=== PATIENT | female | born 2005 | race Caucasian/White ===

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

== ENCOUNTER 2024-04-16 19:36 | Emergency (ER) | payer BC, SELFPAY ==
[2024-04-16] VITALS (35 sets, daily range): BP systolic 105–123; BP diastolic 61–78; PULSE 73–103; RESP 10–30; TEMP 37.3; O2SAT 94–100
--- NOTE | 2024-04-16 19:59 | W.ED.GENAD ---
Discharge Plan Disposition Patient Disposition: Home Condition: Improving Discharge Details Chief Complaint: Nk/Back Pain Clinical Impression: Vomiting Primary Care Provider: Nathalie Conner ED Provider: Kobe Shea Home Meds and New Rx's Prescriptions: No Action cholecalciferol (vitamin D3) 1,000 unit capsule 1,000 unit PO DAILY multivitamin tablet 1 tab PO DAILY (DME) [facility] Luer Lock Syr-needle 3 mL 23 x 1 syringe See Rx Instructions .Route Qty: 30 0RF Rx Instructions: As directed Discharge Instructions Instructions: Nausea and Vomiting, Adult ED Additional Instructions: Please follow-up with your primary care physician. Return to the emergency department for any worsening symptoms HPI General Date/Time Provider Initiated Documentation: 04/16/24 19:55. HPI Narrative: 19-year-old female brought in by mother for evaluation of back pain nausea vomiting after drinking heavily last night into this morning 1 AM. Related Data Home Medications ?Medication ?Instructions ?Recorded ?Confirmed cholecalciferol (vitamin D3) 25 1,000 unit PO DAILY 03/20/19 03/09/24 mcg (1,000 unit) capsule multivitamin 1 tab PO DAILY 03/20/19 03/09/24 syringe with needle 3 mL 23 x 1 #30 ea 01/17/23 03/09/24 ([facility] Luer Lock Syringe with needle) Previous Rx's ?Medication ?Instructions ?Recorded syringe with needle 3 mL 23 x 1 #30 ea 01/17/23 ([facility] Luer Lock Syringe with needle) Allergies Allergy/AdvReac Type Severity Reaction Status Date / Time No Known Allergies Allergy Verified 03/09/24 12:47 General Stated Complaint: Nk/Back Pain JAMIE: 3 Exam Narrative Exam Narrative: Alert oriented interactive Moist mucous membranes tolerating secretions normal voice Speaking full sentences no respiratory distress Abdomen soft nontender nondistended Alert oriented interactive moving all extremities Course Vital Signs Vital signs: Vital Signs Temperature 37.3 C 04/16/24 19:40 Pulse 94 H 04/16/24 19:40 Respiratory Rate 15 04/16/24 19:40 Blood Pressure 120/76 04/16/24 19:40 Pulse Oximetry 99 04/16/24 19:40 Temperature 37.3 C 04/16/24 19:40 Temperature Source Tympanic 04/16/24 19:40 Pulse 94 H 04/16/24 19:40 Respiratory Rate 15 04/16/24 19:40 Respiratory Effort Normal 04/16/24 19:47 Blood Pressure 120/76 04/16/24 19:40 Blood Pressure Position Sitting 04/16/24 19:40 Pulse Oximetry 99 04/16/24 19:40 Oxygen Delivery Method Room Air 04/16/24 19:40 Oxygen Flow Rate 0 04/16/24 19:40 Medical Decision Making 19-year-old female presents with nausea headache and back discomfort after drinking heavily last night. Hemodynamically stable afebrile nontoxic abdomen soft nontender nondistended. Moist mucous membranes. Alert oriented interactive no signs of intoxication or trauma. Nonperitoneal examination. Consider hangover versus gastritis versus esophagitis versus pancreatitis lower suspicion for dehydration or electrolyte derangement low suspicion of cholecystitis appendicitis or urinary tract infection. Will obtain basic labs lipase urine test, fluids antiemetics GI cocktail close reassessment 23: 02 patient resting notably feeling much better. No vomiting in department. Nonperitoneal. Hemodynamically stable. Respiratory rate is not 27 respiratory rate is 16. Leukocytosis likely related to persistent vomiting today, no infectious symptomatology currently such as fever respiratory complaint GI complaint or urinary complaint. Ketones in urine consistent with decreased p.o. intake today and vomiting. No evidence of DKA. Home care instructions and strict return precautions given. Patient feels comfortable going home. Quality:SDOH Health Related Social Needs: No Data to Display PFSH All Active Problems (Updated 04/16/24 @ 23:04 by Kobe Shea MD) Vomiting (Acute) Scoliosis (Acute) Acne (Acute) Tonsil stone (Acute) Pharyngitis (Acute) Depo-Provera contraceptive status (Acute) Mom is pharmacist and managing injections from home Anorexia (Acute) PTSD (post-traumatic stress disorder) (Acute) Anxiety (Chronic) Depression (Chronic) GERD (gastroesophageal reflux disease) (Chronic) Medical History Ear infection frequent ear infections and wax build up External hemorrhoids without mention of complication Surgical History Myringotomy tube status Family History Mother Depression Father Substance abuse alcohol and drugs Depression Other Cancer Diabetes Heart disease Hyperlipidemia Hypertension Social History Second Hand Exposure: Yes Smoking risk assessment performed?: No Household members: other Details: roommate Education Level: college Details: Sophomore [employer] Pets and animals: Yes (4 dogs, 2 cats) Pets and animals: cat(s) and dog(s) Current gender identity: female PAWSS Have you Been Recently Intoxicated or Drunk Within the Last 30 days?: Yes Have you Ever Experienced Previous Episodes of Alcohol Withdrawal?: No Have you ever Experienced Withdrawal Seizures?: No Have you ever Experienced Delirium Tremens(DT)s?: No Have you ever undergone Alcohol Rehabilitation Treatment (i.e, inpt ot outpatient treatment programs)?: No Have you ever Experienced Blackouts?: No Have you ever Combined Alcohol with other Downers within the last 90 days?: No Have you ever Combined Alcohol with any other Substance of Abuse during the last 90 days?: No Positive Blood Alcohol level on Presentation? [PCS.BAL]: No Evidence of Increased Autonomic Activity (i.e. HR>120, tremor, sweating, agitation, nausea)?: No Result: 1
[2024-04-16 20:03] LABS: Abs Immature Grans 0.13 10^3/uL (0.0-0.06); Absolute Lymphocyte Count 0.98 10^3/uL (1.2-3.4); Absolute Monocyte Count 0.81 10^3/uL (0.1-0.8); Basophils % 0.3 %; HCT 39.6 % (36.0-46.0); HGB 13.3 g/dL (11.2-15.7); Immature Grans % 0.6 %; Lymphocytes % 4.8 %; MCH 28.7 pg (27.0-33.0); MCHC 33.6 % (32.0-36.0); MCV 86 fL (80-95); MPV 9.5 fL (8.0-11.0); Neutrophils % 90.3 %; Platelet Count 230 10^3/uL (130-400); RBC 4.63 10^6/uL (3.93-5.22); RDW 12.8 % (11.7-14.6); RDW-SD 39.7 fL; WBC 20.36 10^3/uL (4.4-10.8)
[2024-04-16 20:04] LABS: Absolute Basophil Count 0.06 10^3/uL (0.0-0.2); Absolute Neutrophil Count 18.39 10^3/uL (1.2-6.7)
[2024-04-16] MEDS: Lidocaine 2% Viscous 15 ML CUP (20:14)
[2024-04-16] MEDS: Mylanta Suspension 30 ML CUP (20:14)
[2024-04-16] MEDS: Famotidine 20 MG/2 ML VIAL IVP (20:14)
[2024-04-16] MEDS: Ondansetron 4 MG/2 ML VIAL IVP (20:14)
[2024-04-16] MEDS: Normal Saline 1,000 ML 1000 ML IV (20:14)
[2024-04-16 20:16] LABS: Lipase 19 U/L (16-77)
[2024-04-16 20:19] LABS: ALT 61 U/L (14-59); AST 35 U/L (15-37); Albumin 4.3 g/dL (3.4-5.0); Alkaline Phosphatase 88 U/L (46-116); Anion Gap 11.4 mmol/L (3-11); BUN 13 mg/dL (7-18); Bilirubin, Total 1.14 mg/dL (0.2-1.0); CO2 26.6 mmol/L (21.0-32.0); CREATININE 0.9 mg/dL (0.55-1.02); Calcium 9.2 mg/dL (8.5-10.1); Chloride 104 mmol/L (98-107); Estimated GFR 93.86 (mL/min/1.73m2); Glucose 102 mg/dL (74-106); Potassium 3.7 mmol/L (3.5-5.1); Sodium 142 mmol/L (136-145); Total Protein 7.8 g/dL (6.4-8.2)
[2024-04-16 22:49] LABS: Bilirubin Negative (Negative); Blood Negative (Negative); Clarity Clear (Clear); Glucose Negative (Negative); Ketones >=160 mg/dL (Negative); Leukocyte Esterase Negative (Negative); Nitrite Negative (Negative); Specific Gravity 1.025 (1.005-1.025); Urobilinogen 0.2 mg/dL (Up to 0.2)
== END 2024-04-16 23:30 | disposition home or self-care (01) ==
PROVIDERS: Emergency Provider Emergency Medicine; PCP Student in an Organized Health Care Education/Training Program
DX: R11.2 Nausea with vomiting, unspecified (principal); R51.9 Headache, unspecified; M54.50 Low back pain, unspecified
CPT/HCPCS: 80053; 81025; 83690; 96374; 96375; 99284; 81003; 85025; 99283; J2405